=== PATIENT | male | born 1990 | race Two or more races ===

== ENCOUNTER 2017-06-12 16:56 | Emergency (ER) | payer OTHER ==
[~2017-06-12] VITALS: Ht 167.6 cm; Wt 72.6 kg
--- NOTE | 2017-06-12 17:33 | PHYS DOC ---
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 Patient is non-Urdu- speaking and the life skills educator line was utilized for assistance. Patient states that he was loading food into a vending machine when he slipped and fell into the machine. He states he had onset of right shoulder right elbow pain. He states it is painful to move the right shoulder and elbow. He has no other complaints. He denies radiation of pain, loss of function other than as related to pain. Review of Systems Review of Systems Constitutional: Denies fever or chills [] Eyes: Denies change in visual acuity, redness, or eye pain [] HENT: Denies nasal congestion or sore throat [] Respiratory: Denies cough or shortness of breath [] Cardiovascular: No additional information not addressed in HPI [] GI: Denies abdominal pain, nausea, vomiting, bloody stools or diarrhea [] : Denies dysuria or hematuria [] Musculoskeletal: Shoulder right elbow pain Integument: Denies rash or skin lesions [] Neurologic: Denies headache, focal weakness or sensory changes [] Endocrine: Denies polyuria or polydipsia [] Current Medications Current Medications Current Medications Medications (Trade) Dose Ordered Sig/[facility] Start Time Stop Time Status Last Admin Dose Admin Ketorolac Tromethamine (Toradol Im) 60 mg 1X ONCE 06/12/17 17:45 06/12/17 17:46 DC Allergies Allergies Allergies Coded Allergies Type Severity Reaction Last Updated Verified No Known Drug Allergies 06/12/17 No Physical Exam Physical Exam Constitutional: Well developed, well nourished, no acute distress, non-toxic appearance. []] Cardiovascular:Heart rate regular rhythm, no murmur [] Lungs & Thorax: Bilateral breath sounds clear to auscultation [] Skin: Warm, dry, no erythema, no rash. [] Back: No tenderness, no CVA tenderness. [] Extremities: Right upper extremity, no obvious deformity. He has diffuse tenderness to palpate in the shoulder and elbow. He will allow for range of motion but has facial grimacing. Right wrist exam unremarkable. Right hand exam unremarkable Neurovascular intact distally. Neurologic: Alert and oriented X 3, normal motor function, normal sensory function, no focal deficits noted. [] EKG EKG [] Radiology/Procedures Radiology/Procedures Shoulder right elbow x-ray unremarkable for bony acute injury[] Course & Med Decision Making Course & Med Decision Making Pertinent Labs and Imaging studies reviewed. (See chart for details) []Patient placed in a sling for comfort. Given instructions for ice and elevate. Ibuprofen prescription provided. Follow-up with [employer] [employer]. Brown Disclaimer Kevin Disclaimer This electronic medical record was generated, in whole or in part, using a voice recognition dictation system. Departure Departure Impression: Primary Impression: Strain of right upper arm Disposition: HOME, SELF-CARE Condition: STABLE [facility]errals: [facility] Patient Instructions: Arm Sling Use-Brief, Shoulder Sprain Scripts Ibuprofen (IBUPROFEN) 800 Mg Tablet 800 MG PO PRN Q6HRS Y for INFLAMMATION, #20 TAB Prov: CALLY WOODRUFF APRN 06/12/17 Problem Qualifiers Primary Impression: Strain of right upper arm Encounter type: initial encounter Qualified Codes: S46.911A - Strain of unspecified muscle, fascia and tendon at shoulder and upper arm level, right arm , initial encounter CALLY WOODRUFF APRN Jun 12, 2017 17:33
[2017-06-12] MEDS ORDERED: KETOROLAC 60 MG/2 ML INJ. IM ONE (17:45)
[2017-06-12 17:55] VITALS: BP 158/99
[2017-06-12] MEDS ORDERED: IBUP-1060 PO (18:05)
--- NOTE | 2017-06-13 08:07 | RAD ---
Indication fall, pain. 2 AP views of the right shoulder as well as a Y view were obtained. No bony abnormality is seen
--- NOTE | 2017-06-13 08:09 | RAD ---
Indication fall, pain. AP oblique and lateral views of the right elbow were obtained. No bony abnormality is seen. No significant joint fluid is seen
== END 2017-06-12 18:29 | disposition home or self-care (01) ==
LOC: ER 16:56
DX: S46.911A Strain of unspecified muscle, fascia and tendon at shoulder and upper arm level, right arm, initial encounter (principal); W01.0XXA Fall on same level from slipping, tripping and stumbling without subsequent striking against object, initial encounter; Y93.89 Activity, other specified; Y92.89 Other specified places as the place of occurrence of the external cause; Y99.8 Other external cause status
CPT/HCPCS: 73030; 73080; 96372; 99284; J1885